=== PATIENT | female | born 1985 | race African-American/Black ===

== ENCOUNTER 2021-11-29 18:30 | Emergency (ER) | payer OTHER ==
[2021-11-29 19:16] VITALS: BP 156/90; PULSE 70; TEMP 97.7; BMI 37.2
[2021-11-29 19:50] LABS: HCG,QUALITATIVE URINE Negative
[2021-11-29 20:14] LABS: EPITHELIAL CELLS FEW /hpf
[2021-11-29 21:37] LABS: BASO % 0.4 % (0-2.0); EOS % 1.1 % (0-4.5); HEMOGLOBIN 11.6 GM/dL (10.7-15.3); LYMPH % 48.5 % (8-40); MCH 26.3 pg (25.7-33.7); MCHC 32.2 g/dl (32.0-36.0); MEAN CELL VOLUME 81.7 fl (80-96); MONO % 5.1 % (3.8-10.2); NEUT % 44.9 % (42.8-82.8); PLATELET COUNT 371 10^3/uL (134-434); RBC 4.41 M/mm3 (3.60-5.2); RDW 14.2 % (11.6-15.6)
[2021-11-29 21:53] LABS: CALCIUM 8.9 mg/dL (8.5-10.1)
[2021-11-29 21:54] LABS: ALBUMIN 4.1 g/dl (3.4-5.0); BLOOD UREA NITROGEN 11.8 mg/dL (7-18)
[2021-11-29 21:57] LABS: CREATININE 0.6 mg/dL (0.55-1.3)
[2021-11-29 21:58] LABS: BILIRUBIN,TOTAL 0.5 mg/dL (0.2-1)
== END 2021-11-29 21:14 | disposition home or self-care (01) ==
LOC: FER 18:30
DX: N93.9 Abnormal uterine and vaginal bleeding, unspecified (principal)
CPT/HCPCS: 36415; 80053; 81003; 81015; 84702; 84703; 85025; 86850; 86900; 86901; 99283-25